=== PATIENT | female | born 2000 | race Hispanic/Latino ===

== ENCOUNTER 2022-12-09 01:33 | Emergency (ER) | payer OTHER ==
[~2022-12-09] VITALS: Ht 167.6 cm; Wt 104.3 kg
[2022-12-09 02:55] VITALS: BP 120/57; PULSE 108; RESP 16; O2SAT 98
[2022-12-09] MEDS ORDERED: MORPHINE 2 MG SYG IVP ONE (03:00)
[2022-12-09] MEDS ORDERED: IBUP-1493 PO (03:29)
[2022-12-09] MEDS ORDERED: TRAM50TA4 PO (03:29)
== END 2022-12-09 04:22 | disposition home or self-care (01) ==
LOC: EDH 01:33
DX: S82.841A Displaced bimalleolar fracture of right lower leg, initial encounter for closed fracture (principal); F17.200 Nicotine dependence, unspecified, uncomplicated; Z88.8 Allergy status to other drugs, medicaments and biological substances; W18.39XA Other fall on same level, initial encounter; Y93.89 Activity, other specified; Y92.89 Other specified places as the place of occurrence of the external cause; Y99.8 Other external cause status
CPT/HCPCS: 29515; 73590; 73610; 73630; J2270